=== PATIENT | female | born 1995 | race Caucasian/White ===

== ENCOUNTER 2019-08-01 17:26 | Emergency (ER) | payer BC ==
--- NOTE | 2019-08-01 18:02 | ER Document Report ---
ED Medical Screen (RME) - General Chief Complaint: Nausea/Vomiting/Diarrhea Stated Complaint: DIAHERRA/VOMITING Time Seen by Provider: 08/01/19 17:56 Mode of Arrival: Ambulatory Information source: Patient Notes: 23-year-old female presented to ED for complaint of nausea vomiting and diarrhea with body aches all over. 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 She had brain surgery, radiation and chemo. She states her last radiation chemo were in . She is scheduled to have her tubing replaced on August 19, 2019 at [place]. States she has had a shunt series and an MRI with contrast earlier this month. She states that the shunt is broken and she has some fluids buildup but she is scheduled to have it replaced. Diarrhea started at 1:30 in the morning and nausea and vomiting started at 930. I have greeted and performed a rapid initial assessment of this patient. A comprehensive ED assessment and evaluation of the patient, analysis of test results and completion of medical decision making process will be conducted by an additional ED providers. Physical Exam - Vital signs Vitals: Temp Pulse BP Pulse Ox 97.4 F 113 H 127/85 H 100 08/01/19 17:31 08/01/19 17:31 08/01/19 17:31 08/01/19 17:31 Course - Vital Signs Vital signs: Temp Pulse Resp BP Pulse Ox 97.4 F 113 H 127/85 H 100 08/01/19 17:31 08/01/19 17:31 08/01/19 17:31 08/01/19 17:31
[2019-08-01] MEDS ORDERED: NORMAL SALINE 500 ML IV ONE (18:04)
[2019-08-01] MEDS ORDERED: ONDANSETRON 4 MG TAB.RAPDIS PO ONE (18:04)
[2019-08-01 18:34] LABS: HEMOGLOBIN 17.1 g/dL (12.0-15.5); MEAN CORPUSCULAR HEMOGLOBIN 30.3 pg (27.0-33.4); MEAN CORPUSCULAR HGB CONC 33.6 g/dL (32.0-36.0); MEAN CORPUSCULAR VOLUME 90 fl (80-97); PLATELET COUNT 266 10^3/uL (150-450); RED BLOOD COUNT 5.66 10^6/uL (3.72-5.28); RED CELL DISTRIBUTION WIDTH 12.6 % (11.5-14.0); WHITE BLOOD COUNT 13.1 10^3/uL (4.0-10.5)
[2019-08-01 18:53] LABS: ALBUMIN 5.3 g/dL (3.5-5.0); ALKALINE PHOSPHATASE 41 U/L (38-126); ANION GAP 16 (5-19); ASPARTATE AMINO TRANSFERASE 18 U/L (14-36); BILIRUBIN,DIRECT 0.2 mg/dL (0.0-0.4); BILIRUBIN,TOTAL 0.6 mg/dL (0.2-1.3); BLOOD UREA NITROGEN 16 mg/dL (7-20); CALCIUM 10.5 mg/dL (8.4-10.2); CARBON DIOXIDE 20 mmol/L (22-30); CHLORIDE 108 mmol/L (98-107); GLUCOSE 116 mg/dL (75-110); POTASSIUM 4.7 mmol/L (3.6-5.0); TOTAL PROTEIN 8.6 g/dL (6.3-8.2)
[2019-08-01 19:05] LABS: ABSOLUTE LYMPHOCYTES# (MANUAL) 0.4 10^3/uL (0.5-4.7); ABSOLUTE MONOCYTES # (MANUAL) 0.3 10^3/uL (0.1-1.4); BAND NEUTROPHILS % (MANUAL) 1 % (3-5); BASOPHILS % (MANUAL) 0 % (0-2); EOSINOPHILS % (MANUAL) 0 % (0-6); LYMPHOCYTES % (MANUAL) 3 % (13-45); MONOCYTES % (MANUAL) 2 % (3-13); PLATELET COMMENT ADEQUATE; RBC MORPHOLOGY COMMENT NORMO-CYTIC/CHROMIC; SEGMENTED NEUTROPHILS % (MAN) 94 % (42-78); TOTAL CELLS COUNTED 100
--- NOTE | 2019-08-01 19:42 | ER Document Report ---
ED GI/ - General Chief Complaint: Nausea/Vomiting/Diarrhea Stated Complaint: DIARRHEA/VOMITING Time Seen by Provider: 08/01/19 17:56 Primary Care Provider: CLAUDIA SOLORIO FNP [Primary Care Provider] - Follow up as needed Mode of Arrival: Ambulatory Notes: Patient is a 23-year-old female presents to the emergency department with a chief complaint of nausea, vomiting and diarrhea. Patient reports around 130 this morning she woke up having multiple episodes of diarrhea. She reports that she is also had vomiting that started around 930. Patient is unsure if she was exposed to possible food poisoning. Patient reports she has had more than 10 episodes of nausea and vomiting today. Patient denies blood in her stool or vomitus. Patient reports chills. Patient reports she does have a history of migraines and feels like she has a migraine at this time. Patient reports she does have a shunt in her brain for hydrocephalus after brain cancer at age 5. Patient reports her last chemo radiation was in 2002. Patient reports she had MRI of her head with contrast at the beginning July which did show an enlarged ventricle and some fluid to the left side of her brain. Patient reports she is scheduled for tube replacement on August 19. Patient denies urinary symptoms. 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 TRAVEL OUTSIDE OF THE [place] IN LAST 30 DAYS: No - Related Data Allergies/Adverse Reactions: No Known Allergies Allergy (Verified 08/01/19 18:05) Home Medications: norethindrone, iron, folic acid, cranberry, apple cider vinegar, gabapentin, confianza, biotin, topiramate, calcium Past Medical History - General Information source: Patient - Social History Smoking Status: Current Every Day Smoker Chew tobacco use (# tins/day): No Frequency of alcohol use: Occasional Drug Abuse: None Lives with: Family Family History: None Patient has suicidal ideation: No Patient has homicidal ideation: No - Past Medical History Cardiac Medical History: Reports: None Pulmonary Medical History: Reports: None EENT Medical History: Reports: None Neurological Medical History: Reports: Hx Migraine Endocrine Medical History: Reports: None Renal/ Medical History: Reports: None Malignancy Medical History: Reports: None GI Medical History: Reports: None Musculoskeletal Medical History: Reports None Skin Medical History: Reports None Psychiatric Medical History: Reports: None Traumatic Medical History: Reports: None Infectious Medical History: Reports: None Past Surgical History: Reports: Hx [employer] Shunt Review of Systems - Review of Systems Constitutional: See HPI EENT: No symptoms reported Cardiovascular: No symptoms reported Respiratory: No symptoms reported Gastrointestinal: See HPI Genitourinary: No symptoms reported Female Genitourinary: No symptoms reported Musculoskeletal: No symptoms reported Skin: No symptoms reported Hematologic/Lymphatic: No symptoms reported Neurological/Psychological: No symptoms reported Physical Exam - Vital signs Vitals: Temp Pulse BP Pulse Ox 97.4 F 113 H 127/85 H 100 08/01/19 17:31 08/01/19 17:31 08/01/19 17:31 08/01/19 17:31 - Notes Notes: GENERAL: Well-appearing, well-nourished and in no acute distress. HEAD: Atraumatic, normocephalic. Right facial droop (hx. chand's palsy) EYES: Pupils equal round and reactive to light, extraocular movements intact, sclera anicteric, conjunctiva are normal. ENT: Nares patent, oropharynx clear without exudates. Moist mucous membranes. NECK: Normal range of motion, supple without lymphadenopathy or JVD. No nuchal rigidity. LUNGS: Breath sounds clear to auscultation bilaterally and equal. No wheezes rales or rhonchi. HEART: Regular rate and rhythm without murmurs, rubs or gallops. ABDOMEN: Soft, nontender, normoactive bowel sounds. No guarding, no rebound. No masses appreciated. BACK: No cervical, thoracic, lumbar midline tenderness. No saddle anesthesia, normal distal neurovascular exam. GENITOURINARY: Deferred. EXTREMITIES: Normal range of motion, no pitting or edema. No clubbing or c yanosis. NEUROLOGICAL: Cranial nerves II through XII grossly intact. Normal speech, normal gait. PSYCH: Normal mood, normal affect. SKIN: Warm, Dry, normal turgor, no rashes or lesions noted. Course - Re-evaluation Re-evalutation: 08/01/19 19:37 Spoke with [facility] to consult with Neurosurgery regarding the patient, her complaint of migraine headache and hx. Shunt with scheduled tube replacement on August 19, 2019 at [facility]. Waiting for call back. 08/01/19 20:05 I did speak with Dr. Farnaz Vizcarra with neurosurgery at [facility]. She does recommend giving the patient a migraine cocktail here in the emergency department and to rehydrate as the patient did develop diarrhea and vomiting prior to the migraine. She reports that after our interventions if the patient continues to complain of a severe headache she does recommend contacting [facility] to transfer the patient to their facility. She does not recommend any imaging at this time. 08/01/19 20:15 I did discuss the recommendations with the patient. She is in agreement with this plan. Patient reports her headache currently is a 5 out of 5. 08/01/19 22:19 Patient was received a liter and a half of fluid as well as her 1 g of Rocephin for her urinary tract infection. Patient has not had any vomiting or diarrhea. Patient is urinating. Patient reports her headache is almost gone. Patient reports she does feel comfortable going home. Patient does need to follow-up with her neurologist tomorrow at [facility]. Patient verbalizes understanding. - Vital Signs Vital signs: Temp Pulse Resp BP Pulse Ox 98.4 F 78 16 100/67 98 08/01/19 21:28 08/01/19 21:28 08/01/19 21:28 08/01/19 21:28 08/01/19 21:28 - Laboratory Result Diagrams: 08/01/19 18:13 08/01/19 18:13 Laboratory results interpreted by me: 08/01/19 08/01/19 08/01/19 17:40 18:13 18:13 WBC 13.1 H RBC 5.66 H Hgb 17.1 H Hct 51.0 H Seg Neuts % (Manual) 94 H Band Neutrophils % 1 L Lymphocytes % (Manual) 3 L Monocytes % (Manual) 2 L Abs Neuts (Manual) 12.4 H Abs Lymphs (Manual) 0.4 L Chloride 108 H Carbon Dioxide 20 L Glucose 116 H Calcium 10.5 H Total Protein 8.6 H Albumin 5.3 H Urine Protein 30 H Urine Blood MODERATE H Ur Leukocyte Esterase SMALL H 08/01/19 21:13 Patient is a mild leukocytosis of 13.1. As well as an elevated hemoglobin. This is consistent with nausea and vomiting and dehydration. Patient has a normal BUN and creatinine. Patient's CO2 slightly low at 20 prior to receiving IV fluids. Patient does have a small amount leukocytes in the urine with too numerous to count white blood cells. Laboratory 08/01/19 08/01/19 08/01/19 17:40 18:13 18:13 WBC 13.1 H RBC 5.66 H Hgb 17.1 H Hct 51.0 H MCV 90 MCH 30.3 MCHC 33.6 RDW 12.6 Plt Count 266 Lymph % (Auto) Not Reportable [place] % (Auto) Not Reportable Eos % (Auto) Not Reportable Baso % (Auto) Not Reportable Absolute Neuts (auto) Not Reportable Absolute Lymphs (auto) Not Reportable Absolute Monos (auto) Not Reportable Absolute Eos (auto) Not Reportable Absolute Basos (auto) Not Reportable Total Counted 100 Seg Neutrophils % Not Reportable Seg Neuts % (Manual) 94 H Band Neutrophils % 1 L Lymphocytes % (Manual) 3 L Monocytes % (Manual) 2 L Eosinophils % (Manual) 0 Basophils % (Manual) 0 Abs Neuts (Manual) 12.4 H Abs Lymphs (Manual) 0.4 L Abs Monocytes (Manual) 0.3 Absolute Eos (Manual) 0.0 Abs Basophils (Manual) 0.0 Platelet Comment ADEQUATE RBC Morph Comment NORMO-CYTIC/CHROMIC Sodium 144.2 Potassium 4.7 Chloride 108 H Carbon Dioxide 20 L Anion Gap 16 BUN 16 Creatinine 0.99 Est GFR ( Amer) > 60 Est GFR (MDRD) Non-Af > 60 Glucose 116 H Calcium 10.5 H Total Bilirubin 0.6 Direct Bilirubin 0.2 Neonat Total Bilirubin Not Reportable Neonat Direct Bilirubin Not Reportable Neonat Indirect Bili Not Reportable AST 18 ALT 15 Alkaline Phosphatase 41 Troponin I Total Protein 8.6 H Albumin 5.3 H Lipase 82.3 Serum HCG, Qual Urine Color YELLOW Urine Appearance TURBID Urine pH 7.0 Ur Specific [place] 1.017 Urine Protein 30 H Urine Glucose (UA) NEGATIVE Urine Ketones NEGATIVE Urine Blood MODERATE H Urine Nitrite NEGATIVE Urine Bilirubin NEGATIVE Urine Urobilinogen NEGATIVE Ur Leukocyte Esterase SMALL H Urine RBC 1-5 Urine WBC TOO NUMEROUS TO CNT Urine Bacteria 1+ WBC Casts 5-10 Urine Ascorbic Acid NEGATIVE 08/01/19 08/01/19 18:13 18:13 WBC RBC Hgb Hct MCV MCH MCHC RDW Plt Count Lymph % (Auto) [place] % (Auto) Eos % (Auto) Baso % (Auto) Absolute Neuts (auto) Absolute Lymphs (auto) Absolute Monos (auto) Absolute Eos (auto) Absolute Basos (auto) Total Counted Seg Neutrophils % Seg Neuts % (Manual) Band Neutrophils % Lymphocytes % (Manual) Monocytes % (Manual) Eosinophils % (Manual) Basophils % (Manual) Abs Neuts (Manual) Abs Lymphs (Manual) Abs Monocytes (Manual) Absolute Eos (Manual) Abs Basophils (Manual) Platelet Comment RBC Morph Comment Sodium Potassium Chloride Carbon Dioxide Anion Gap BUN Creatinine Est GFR ( Amer) Est GFR (MDRD) Non-Af Glucose Calcium Total Bilirubin Direct Bilirubin Neonat Total Bilirubin Neonat Direct Bilirubin Neonat Indirect Bili AST ALT Alkaline Phosphatase Troponin I < 0.012 Total Protein Albumin Lipase Serum HCG, Qual NEGATIVE Urine Color Urine Appearance Urine pH Ur Specific [place] Urine Protein Urine Glucose (UA) Urine Ketones Urine Blood Urine Nitrite Urine Bilirubin Urine Urobilinogen Ur Leukocyte Esterase Urine RBC Urine WBC Urine Bacteria WBC Casts Urine Ascorbic Acid 08/01/19 22:33 Discharge - Discharge Clinical Impression: Nausea vomiting and diarrhea Urinary tract infection Qualifiers: Urinary tract infection type: site unspecified Hematuria presence: without hematuria Qualified Code(s): N39.0 - Urinary tract infection, site not specified Migraine Qualifiers: Migraine type: unspecified Status migrainosus presence: without status migrainosus Intractability: not intractable Qualified Code(s): G43.909 - Migraine, unspecified, not intractable, without status migrainosus Condition: Stable Disposition: HOME, SELF-CARE Additional Instructions: *Today you are seen in the emergency department for nausea, vomiting and diarrhea. You are also seen for a migraine headache. After receiving her migraine cocktail which consisted of Benadryl, Reglan and Toradol you report that your headache has significantly improved. We have adequately hydrated you. At this time I do not believe you need any further testing or imaging. I did c onsult with neurosurgery at [facility] who did agree with this plan. Ultimately you do need to follow-up with neurosurgery tomorrow. I would call your doctor at [facility] to make him aware of that your headache. If you develop any new or worsening symptoms such as severe headache, uncontrollable vomiting, visual changes or any new or worsening symptoms please return to the emergency department. *Your symptoms could be consistent with a gastroenteritis. This is normally due to a virus. Typically we treat the symptoms. Please start with a clear liquid diet over the next 24 hours and advance to a normal diet. *Was noted that you do have a urinary tract infection. You have been given a dose of IV antibiotics during her hospital stay and you will be prescribed antibiotics to go home with. Please have this filled and started tomorrow. Please return the emergency department if you develop a fever, severe kidney pain, nausea vomiting or diarrhea. Headache The physician does not feel that the headache you are experiencing has a serious underlying cause. Most headaches are due to emotional stress, with resultant muscle tension (tension headache). Occasionally, headaches are secondary to changes in the blood vessels of the scalp (vascular headache and migraine headache). Sometimes, a headache is the first symptom of another developing illness, such as a viral infection. You have no evidence of stroke, bleeding, meningitis, or other serious cause of your headache. The treatment of headaches varies with the severity and cause of the pain. Not all headaches need pain shots. In fact, there is evidence that using narcotics for headaches may make them worse in the long run. The physician will determine the therapy that's in your best interest. If you develop a fever, if the headache is different from any you've previously experienced, or if the headache progressively worsens, then call your physician at once or go to the emergency room. Nausea or Vomiting, Nonspecific Vomiting (or nausea without vomiting) can be caused by many different problems. Of course, it can mean that something's wrong with the stomach, such as "stomach flu," ulcers, or inflammation. But it can also be a symptom of a problem that has nothing to do with the stomach or intestines. Vomiting is common with severe headaches, earaches, and tonsillitis. We see it with pneumonia or heart attacks. Drugs can cause nausea. Many abdominal problems cause vomiting; for example, gallstones, kidney stones, pancreatitis, and intestinal obstruction (blocked bowels). In most cases, curing the vomiting depends on fixing the problem that caus ed it. For temporary relief, we may use an anti-nausea medicine. For home use, we can prescribe suppositories, chewable pills, pills that dissolve in the mouth, or liquid anti-nausea drugs. If the vomiting seems to be caused by a problem in the stomach, acid-suppressing drugs may be prescribed as well. It's important to avoid dehydration. Sip clear liquids. Take increasing amounts of fluid over the first 24 hours. Then start small amounts of bland foods (such as dry toast, applesauce, mashed potato). Avoid aspirin, tobacco, and alcohol. Gradually resume your usual diet. If the vomiting worsens, if the problem that's making you vomit worsens, or if there's evidence of bleeding in the stomach (such as black, tarry stool, bloody or black vomit, or lightheadedness), you should return immediately. Call your doctor if you aren't improved in 24 to 36 hours. URINARY TRACT INFECTION: Your evaluation indicates that you have a urinary tract infection. This is due to germs growing in the bladder. This is a common problem. This infection usually responds quickly to antibiotics. Your antibiotic should be taken exactly as prescribed. Drink plenty of fluids -- three to four quarts a day. Occasionally, a bladder anesthetic will be prescribed to help stop the feeling of urgency until the antibiotic has a chance to clear the infection. This may cause your urine to be dark orange. Certain urine infections require a culture. If the doctor obtained a culture, the results will be back in two days. You should call to see if a change in treatment is needed. A repeat urinalysis after you finish treatment is often recommended. The physician will let you know if further testing is required. Call the doctor if you develop fever, chills, flank pain, inability to urinate, or blood in the urine. ANTIBIOTIC THERAPY: You have been given an antibiotic prescription. It's important that you take all the medication, unless instructed otherwise by your physician. Failure to complete the entire course can result in relapse of your condition. Common side effects of antibiotics include nausea, intestinal cramping, or diarrhea. Women may develop vaginal yeast infections, and babies can get yeast (thrush) in the mouth following the use of antibiotics. Contact your physician if you develop significant side effects from this medication. Allergy to this antibiotic can result in hives, wheezing, faintness, or itching. If symptoms of allergy occur, stop the medication and call the doctor. CEPHALEXIN: The antibiotic you've been prescribed is a member of the cephalosporin class. This type of antibiotic covers a wide variety of infections, including those of the skin, lungs, and urinary tract. It's useful for staph infections. This antibiotic is slightly similar to the penicillin family. In rare cases, a person who is allergic to penicillin will also be allergic to this medication. If you have had a severe allergic reaction to penicillin, and have not taken this antibiotic since that time, notify your doctor. Antibiotics which cover many germs ("broad spectrum" antibiotics) are more likely to cause diarrhea or "yeast" infections. Women prone to vaginal yeast problems may suffer an attack after taking this antibiotic. In infants, oral thrush (white spots "stuck" on the cheek) or yeast diaper rash may result. See your doctor if these problems occur. Call at once if you develop itching, hives, shortness of breath, or lightheadedness. FOLLOW-UP CARE: If you have been referred to a physician for follow-up care, call the physicians office for an appointment as you were instructed or within the next two days. If you experience worsening or a significant change in your symptoms, notify the physician immediately or return to the Emergency Department at any time for re-evaluation. Prescriptions: Cephalexin Monohydrate [Keflex 500 mg Capsule] 500 mg PO BID 7 Days #14 capsule Referrals: CLAUDIA SOLORIO FNP [Primary Care Provider] - Follow up as needed
[2019-08-01] MEDS ORDERED: DIPHENHYDRAMINE HCL 50 MG/ML VIAL IV ONE (20:07)
[2019-08-01] MEDS ORDERED: NORMAL SALINE 1000 ML 1,000 ML IV ONE (20:07)
[2019-08-01] MEDS ORDERED: KETOROLAC TROMETHAMINE INJ/PF 30 MG/1 ML SDV IV ONE (20:07)
[2019-08-01] MEDS ORDERED: METOCLOPRAMIDE HCL INJ/PF 10 MG/2 ML SDV IV ONE (20:07)
[2019-08-01 20:18] LABS: APPEARANCE,URINE TURBID; BILIRUBIN,URINE NEGATIVE (NEGATIVE); COLOR,URINE YELLOW; GLUCOSE, URINE NEGATIVE (NEGATIVE); KETONES,URINE NEGATIVE (NEGATIVE); LEUKOCYTE ESTERASE,URINE SMALL (NEGATIVE); NITRITE,URINE NEGATIVE (NEGATIVE); PROTEIN,URINE 30 mg/dL (NEGATIVE); URINE SPECIFIC GRAVITY 1.017; UROBILINOGEN,URINE NEGATIVE mg/dL (<2.0)
[2019-08-01 20:31] LABS: ADD MANUAL MICROSCOPIC YES; WBC,URINE TOO NUMEROUS TO CNT /HPF
[2019-08-01 20:33] LABS: BACTERIA,URINE 1+ /HPF
[2019-08-01] MEDS ORDERED: CEFTRIAXONE 1 GM/D5W RTU 1 GM/50 ML RTUPB IV ONE (21:30)
[2019-08-01] MEDS ORDERED: ONDANSETRON ODT 4 MG TAB (6 TAB/ER DISP) PO PRN (22:28)
[2019-08-01 23:10] VITALS: BP 100/48
== END 2019-08-01 23:10 | disposition home or self-care (01) ==
LOC: ER 17:26
DX: G43.909 Migraine, unspecified, not intractable, without status migrainosus (principal); N39.0 Urinary tract infection, site not specified; R11.2 Nausea with vomiting, unspecified; R19.7 Diarrhea, unspecified; Z98.2 Presence of cerebrospinal fluid drainage device; Z85.841 Personal history of malignant neoplasm of brain; Z79.899 Other long term (current) drug therapy; F17.200 Nicotine dependence, unspecified, uncomplicated
CPT/HCPCS: 99284; 96361; 96374; 36415; 87086; 83690; 84703; 85025; 80053; 81001; 84484; J1200; S0119; J1885; J2765; J7030; J7040; J0696